=== PATIENT | female | born 1990 | race Caucasian/White ===

== ENCOUNTER 2024-02-12 14:14 | Emergency (ER) | payer OTHER, SELFPAY ==
--- NOTE | ~2024-02-12 | CT_ITS ---
EXAMINATION: CT abdomen pelvis w con DATE: 02/12/2024 19:05 INDICATION: Generalized abdominal pain. Nausea, vomiting, and diarrhea. TECHNIQUE: Computed tomography (CT) of the abdomen and pelvis was performed with 100 mL Omnipaque 350 intravenous contrast. Automated exposure control and iterative reconstruction technique were employe d. The dose-length product was 774.02 mGy-cm. COMPARISON: None. FINDINGS: The visualized portions of the lung bases demonstrate mild atelectasis. No pleural effusion . The heart size is normal. No pericardial effusion. There is mild pectus excavatum. The liver and sp joss are normal. There are changes of cholecystectomy. The pancreas, adrenal glands, and kidneys are normal. There are no dilated loops of bowel. The appendix is normal. There is an intrauterine device in expected position. There are no pathologically enlarged lymph nodes. There is no free intraperiton eal fluid. There is mild thoracic and lumbar spondylosis. There is mild chronic anterior wedging of m ultiple vertebral bodies. IMPRESSION: 1. No etiology for the patient's symptoms. Reviewed, dictated and finalized at location E.
[2024-02-12 14:46] VITALS: BP 129/61; PULSE 97; RESP 14; TEMP 36.4; O2SAT 98
--- NOTE | 2024-02-12 14:49 | PC.NURSE ---
Pt becaame pale, diaphoretic, emesis of undigested food. VSS, IV fluids from EMS infusing
[2024-02-12 16:35] VITALS: BP 110/65; PULSE 71; RESP 15; O2SAT 100
--- NOTE | 2024-02-12 17:23 | ED.NAVMDI ---
HPI - Nausea/Vomiting/Diarrhea General Chief complaint: Nausea/Vomiting/Diarrhea <CORA Quiroz Last Filed: 02/12/24 17:32> Stated complaint: n/v/d <Laura Araiza PA-C - Last Filed: 02/12/24 17:32> Time Seen by Provider: 02/12/24 17:23 <CORA Quiroz Last Filed: 02/12/24 17:32> Focused HPI: Patient is a 33 y/o female who presents to the ED via EMS with report of N/V/D. Patient reports she woke up this morning feeling unwell. She first developed diarrhea this morning and had several episodes. Denied rectal bleeding or melena. She then developed vomiting and reported multiple episodes of emesis. C/o pain to her epigastric region radiating down her abdomen. She also reports feeling lightheaded and states she passed out a few times. Denies HI, HOFFMAN. Patient was given fluids and zofran en route to the ED. Denies any known fevers. Denies familiy member with similar sx's, but states he had a similar GI bug a few weeks ago after eating foreign candy. GENERAL: Mildly ill-appearing, well-nourished, and in no acute distress. HEAD: Normocephalic, atraumatic. CHEST: Clear to auscultation. ?No respiratory distress. HEART: Tachycardic with regular rhythm.? ABD: Soft, nondistended, mild TTP in epigastric region. NEURO: ?Alert and oriented x3. Patient screened in triage and initial orders placed.? ?Additional care and disposition to be based upon?diagnostic testing and treatment. <CORA Quiroz Last Filed: 02/12/24 17:32> Source: patient <CORA Quiroz Last Filed: 02/12/24 17:32> Mode of arrival: EMS <CORA Quiroz Last Filed: 02/12/24 17:32> Limitations: no limitations <CORA Quiroz Last Filed: 02/12/24 17:32> History of Present Illness HPI Narrative: HPI per MSE. <Ant Brigido Dumont III, DO - Last Filed: 02/12/24 19:35> Related Data Allergies/Adverse reactions: Allergies Allergy/AdvReac Type Severity Reaction Status Date / Time dexamethasone [From Decadron] Allergy Fainting Verified 02/12/24 17:39 <CORA Quiroz Last Filed: 02/12/24 17:32> Course Vital Signs Vital signs: Vital Signs Temperature 97.6 F 02/12/24 14:46 Pulse Rate 97 02/12/24 14:46 Respiratory Rate 14 02/12/24 14:46 Blood Pressure 129/61 02/12/24 14:46 Pulse Oximetry 98 02/12/24 14:46 Temperature 97.6 F 02/12/24 14:46 Pulse Rate 97 02/12/24 14:46 Respiratory Rate 14 02/12/24 14:46 Blood Pressure 129/61 02/12/24 14:46 Pulse Oximetry 98 02/12/24 14:46 <CORA Quiroz Last Filed: 02/12/24 17:32> Vital Signs Temperature 97.6 F 02/12/24 14:46 Pulse Rate 97 02/12/24 14:46 Respiratory Rate 14 02/12/24 14:46 Blood Pressure 129/61 02/12/24 14:46 Pulse Oximetry 98 02/12/24 14:46 Temperature 97.6 F 02/12/24 14:46 Pulse Rate 97 02/12/24 14:46 Respiratory Rate 14 02/12/24 14:46 Blood Pressure 129/61 02/12/24 14:46 Pulse Oximetry 98 02/12/24 14:46 <Ant Dumont III, DO - Last Filed: 02/12/24 19:35> MDM - Nausea/Vomiting/Diarrhea MDM Narrative Medical decision making narrative: MSE by SHAWN in triage. <CORA Quiroz Last Filed: 02/12/24 17:32> MSE by SHAWN in triage. likely gastroenteritis but could be pancreatitis or ulcer or food poisoning. CT neg, other that lactate and wbc labs look ok and these are likely explained by vomiting and dehydration. Pt feels better after zofran and fluids. <Ant Dumont III, DO - Last Filed: 02/12/24 19:35> Lab Data Result diagrams: 02/12/24 17:43 02/12/24 17:43 <Laura Araiza PA-C - Last Filed: 02/12/24 17:32> Labs: Lab Results 02/12/24 02/12/24 02/12/24 Range/Units 17:43 17:43 17:44 WBC 19.2 H (4.5-10.0) K/mm3 RBC 4.77 (4.2-5.4) M/mm3 Hgb 14.4 (12.0-15.0) g/dL H
[2024-02-12] MEDS: FAMOTIDINE 20 MG/2 ML VIAL IV PUSH (17:39)
[2024-02-12] MEDS: ONDANSETRON INJ 4 MG/2 ML VIAL IV PUSH (17:39)
--- NOTE | 2024-02-12 17:48 | ECG_ITS ---
SEE SCANNED COPY FOR CONFIRMED REPORT MTDD
[2024-02-12 17:56] LABS: Hematocrit 44.4 % (37.0-47.0); Hemoglobin 14.4 g/dL (12.0-15.0); Mean Corpuscular HGB Conc 32.4 g/dl (32-36); Mean Corpuscular Hemoglobin 30.2 pg (26-34); Mean Corpuscular Volume 93.1 fl (80-100); Mean Platelet Volume 9.2 fl (7.4-10.4); Platelet Count Result 293 k/mm3 (150-375); Red Blood Count 4.77 M/mm3 (4.2-5.4); Red Cell Distribution Width 12.4 % (11.5-14.5); White Blood Count 19.2 K/mm3 (4.5-10.0)
[2024-02-12 17:57] LABS: Glucose Point of Care 142 mg/dl (65-105)
[2024-02-12 18:06] LABS: Alanine Aminotransferase 34 U/L (6-35); Albumin Level 4.6 g/dL (3.5-5.1); Alkaline Phosphatase 100 U/L (38-126); Anion Gap 10 mmol/L (4-12); Aspartate Amino Transferase 34 U/L (14-36); Bilirubin,Total 0.7 mg/dL (0.2-1.3); Blood Urea Nitrogen 16 mg/dL (7-17); Calcium 8.8 mg/dL (8.4-10.2); Carbon Dioxide 23 mmol/L (22-30); Chloride 104 mmol/L (98-107); Estimated CRCL calculation 618 ml/min; Estimated Glomerular Filt Rate > 60; Glucose 120 mg/dL (65-110); Lactic Acid Reflex 3.1 mmol/L (0.7-2.0); Lipase 45 U/L (23-300); Magnesium 1.7 mg/dL (1.6-2.3); Potassium 4.4 mmol/L (3.4-5.0); Sodium 137 mmol/L (137-145)
[2024-02-12 18:15] VITALS: BP 113/75; PULSE 81; RESP 16; O2SAT 100
[2024-02-12] MEDS: SODIUM CHLORIDE 0.9% IV 1,000 ML 999 ML IV CONT (18:18)
[2024-02-12 18:32] LABS: Influenza A QL RT-PCR Negative (Negative); Influenza B QL RT-PCR Negative (Negative); RSV RNA, RT-PCR Negative (Negative); SARS-CoV-2 RNA PCR Negative (Negative)
[2024-02-12 18:42] LABS: Appearance Urine Clear (Clear); Bilirubin Urine Negative (Negative); Blood Urine Negative (Negative); Color Urine Yellow (Yellow); Glucose Urine UA Negative (Negative); Ketones Urine Negative (Negative); Leukocyte Esterase Ur Negative LEU/UL (Negative); Nitrate Urine Negative (Negative); Protein Urine Negative (Negative); Specific Grav Ur 1.021 (1.001-1.035); Urobilinogen Urine 0.2 mg/dL (<2.0); pH Urine 7.5 (5.0-9.0)
[2024-02-12 18:52] LABS: Band Neutrophils Percent 5 % (0-6); Lymphocytes Absolute Manual 0.38 K/mm3 (1.1-4.5); Neutrophils Absolute Manual 18.81 K/mm3 (1.7-7.2); Neutrophils Percent Manual 93 % (46-73); Platelet Estimate Adequate (Adequate); Total Cells Counted 100
[2024-02-12 18:53] LABS: Schistocytes None Seen
[2024-02-12 19:20] LABS: Add Urine Microscopic? NO
[2024-02-12 19:46] VITALS: BP 111/71; PULSE 67; RESP 18; TEMP 37.2; O2SAT 100
[2024-02-12 20:52] LABS: Reflex Lactic Acid Yes or No Add Lactic
== END 2024-02-12 19:47 | disposition home or self-care (01) ==
PROVIDERS: Physician Assistant; Emergency Provider Emergency Medicine
DX: K52.9 Noninfective gastroenteritis and colitis, unspecified (principal); Z20.822 Contact with and (suspected) exposure to COVID-19; I45.10 Unspecified right bundle-branch block
CPT/HCPCS: 36415; 74177; 80053; 81003; 81025; 82948; 83605; 83690; 83735; 85025; 87637; 93005; 96361; 96374; 96375; 99284; J2405; J7030; Q9967

== ENCOUNTER 2024-03-11 03:13 | Emergency (ER) | payer OTHER, SELFPAY ==
--- NOTE | ~2024-03-11 | CT_ITS ---
Non-contrast CT scan of the Abdomen and Pelvis Clinical indication: Right flank pain Technique: 2.5 mm axial scans were obtained through the abdomen and pelvis without intravenous or or al contrast. Dose reduction technique was used on this scan by utilizing automated exposure control a nd iterative reconstruction technique. The dose-length product (DLP) was 1013.84 mGy-cm. COMPARISON: 02/12/2024 Findings: Images through the lung bases reveal chronic scarring or atelectasis in the right middle l obe. There is a 3 mm right UVJ stone, versus stone just within the urinary bladder. There is minimal fulln ess of the right ureter and right renal clip consistent. No left renal or left ureteral stone. No lef t hydronephrosis. The liver, spleen, pancreas, and adrenals appear normal. Cholecystectomy clips are present. There is no aortic aneurysm. There is no evidence of bowel obstruction. Normal appendix. Images through the pelvis were performed. There is no evidence of ascites or lymphadenopathy. Urinary bladder otherwise unremarkable. IUD in place. Impression: 3 mm probable right UVJ stone, versus stone just within the urinary bladder. Minimal fullness of the right ureter and right renal collecting system. Reviewed, dictated and finalized at location . Impression: 3 mm probable right UVJ stone, versus stone just within the urinary bladder. Minimal fullness of the right ureter and right renal collecting system.
[2024-03-11 03:31] VITALS: BP 112/57; PULSE 60; RESP 18; TEMP 36.1; O2SAT 100
[2024-03-11 03:38] LABS: Basophils Absolute Auto 0.1 K/mm3 (0.0-0.1); Basophils Percent Auto 0.5 % (0.2-1.2); Eosinophils Absolute Auto 0.3 K/mm3 (0-0.3); Eosinophils Percent Auto 2.3 % (0-4.4); Hematocrit 40.4 % (37.0-47.0); Hemoglobin 13.3 g/dL (12.0-15.0); Immature Granulocyte Absolute 0.04 K/mm3 (0.00-0.031); Immature Granulocyte Percent A 0.4 % (0-0.5); Lymphocytes Absolute Auto 3.78 K/mm3 (0.9-3.2); Lymphocytes Percent Auto 34.9 % (18.3-44.2); Mean Corpuscular HGB Conc 32.9 g/dl (32-36); Mean Corpuscular Hemoglobin 30.3 pg (26-34); Mean Platelet Volume 9.2 fl (7.4-10.4); Monocytes Absolute Auto 0.9 K/mm3 (0.1-0.6); Monocytes Percent Auto 8.1 % (2.6-8.5); Neutrophils Absolute Auto 5.8 K/mm3 (1.3-6.7); Neutrophils Percent Auto 53.8 % (45.5-73.1); Platelet Count Result 317 k/mm3 (150-375); Red Blood Count 4.39 M/mm3 (4.2-5.4); Red Cell Distribution Width 12.7 % (11.5-14.5); White Blood Count 10.8 K/mm3 (4.5-10.0)
[2024-03-11 03:50] LABS: Alanine Aminotransferase 35 U/L (6-35); Albumin Level 4.4 g/dL (3.5-5.1); Alkaline Phosphatase 110 U/L (38-126); Anion Gap 10 mmol/L (4-12); Aspartate Amino Transferase 31 U/L (14-36); Bilirubin,Total 0.4 mg/dL (0.2-1.3); Blood Urea Nitrogen 16 mg/dL (7-17); Calcium 9.6 mg/dL (8.4-10.2); Carbon Dioxide 24 mmol/L (22-30); Chloride 104 mmol/L (98-107); Estimated CRCL calculation 118 ml/min; Estimated Glomerular Filt Rate > 60; Glucose 146 mg/dL (65-110); Potassium 3.6 mmol/L (3.4-5.0); Sodium 138 mmol/L (137-145)
[2024-03-11 04:23] LABS: Appearance Urine Cloudy (Clear); Bacteria Urine 2+ /hpf; Bilirubin Urine Negative (Negative); Blood Urine 1+ (Negative); Color Urine Yellow (Yellow); Glucose Urine UA Negative (Negative); Ketones Urine Trace mg/dL (Negative); Leukocyte Esterase Ur 2+ LEU/UL (Negative); Nitrate Urine Negative (Negative); Non Pathogenic Casts 0-2; Protein Urine Trace mg/dL (Negative); RBC Urine 21-50 /hpf (0-2); Specific Grav Ur 1.022 (1.001-1.035); Squamous Epithelial Cell Urine Moderate /hpf (Few); WBC Urine 21-50 /hpf (0-3)
[2024-03-11 04:25] LABS: Add Urine Microscopic? YES
[2024-03-11] MEDS: SODIUM CHLORIDE 0.9% IV 2,000 ML 999 ML IV CONT (04:33)
[2024-03-11] MEDS: ONDANSETRON INJ 4 MG/2 ML VIAL IV PUSH (04:34)
[2024-03-11] MEDS: HYDROmorphone HCL INJ (*CRX) 1 MG/ML SYR IV PUSH (04:35)
[2024-03-11] MEDS: KETOROLAC 15 MG/ML VIAL (*BKC) IV PUSH (04:59)
--- NOTE | 2024-03-11 05:00 | ED.GENADULT ---
HPI - General Adult General Chief complaint: Abdominal Pain Stated complaint: flank pain Time Seen by Provider: 03/11/24 03:50 History of Present Illness HPI narrative: This is a 33-year-old female with history of kidney stones presenting with right flank pain. The pain started earlier today. It is a sharp pain radiating from her right flank into her right groin. This feels similar to kidney stones in the past. She denies fever chills nausea vomiting or diarrhea. Related Data Allergies Allergy/AdvReac Type Severity Reaction Status Date / Time dexamethasone [From Decadron] Allergy Fainting Verified 02/12/24 17:39 Exam Narrative: APPEARANCE: patient appears uncomfortable Head: atraumatic. EYES: EOMI, NOSE: Atraumatic NECK: Trachea midline RESPIRATORY: No increased rate of breathing CT AP CARDIOVASCULAR: RRR, ABDOMINAL: abdomen is soft nontender no guarding or rebound. Right CVA tenderness MUSCULOSKELETAl: No obvious deformities NEURO: Alert. Moving 4/4 extremities SKIN:: Warm, dry. Normal color PSYCHIATRIC: Normal affect Course Vital Signs Vital signs: Vital Signs Temperature 97 F L 03/11/24 03:31 Pulse Rate 60 03/11/24 03:31 Respiratory Rate 18 03/11/24 03:31 Blood Pressure 112/57 L 03/11/24 03:31 Pulse Oximetry 100 03/11/24 03:31 Oxygen Delivery Room Air 03/11/24 03:31 Temperature 97 F L 03/11/24 03:31 Pulse Rate 94 03/11/24 06:39 Respiratory Rate 20 03/11/24 06:39 Blood Pressure 111/53 L 03/11/24 06:39 Pulse Oximetry 94 03/11/24 06:39 Oxygen Delivery Room Air 03/11/24 03:31 Medical Decision Making [facility] Narrative Medical decision making narrative: -Course: 33-year-old female presenting with right-sided flank pain. CT abdomen pelvis showed a 3 mm stone at the UVJ or possibly inside the bladder. patient's pain was controlled in the emergency department. UA showed moderate squamous showed +2 leuk esterase, 21-50 red blood cells 21-50 white blood cells. White count 10.8. Vital sign stable, Afebrile. Patient given 1 dose of ceftriaxone emergency department. I discussed admission versus discharge with the patient. Patient would prefer a trial of outpatient management and understands the risk of worsening infection. Given that the patient is young and healthy with no comorbidities I believe this is reasonable. Given strict return precautions for infection such as fever, worsening flank pain, nausea vomiting or diarrhea. Patient given Urology follow-up. -DDX includes but is not limited to: Kidney stone, UTI, pyelo, muscle strain -Co-morbidities complicating care: history kidney stones -Independent interpretation of studies: white count 10.8. urine with +2 esterase, 21-50 RBCs, 21-50 white blood cells, moderate squamous+2 bacteria -Interventions: ceftriaxone 1g, 2L NS, Dilaudid 1 mg -> .5mg, 15 mg toradol -Shared decision making / Disposition: discussed risk benefits of admission versus trial of outpatient management and the patient would prefer outpatient management -RX: Cefdinir 300 mg b.i.d. times 10 days, Motrin, Tylenol, Zofran, oxycodone Vital Signs Vital Signs: Vital Signs Temperature 97 F L 03/11/24 03:31 Pulse Rate 60 03/11/24 03:31 Respiratory Rate 18 03/11/24 03:31 Blood Pressure 112/57 L 03/11/24 03:31 Pulse Oximetry 100 03/11/24 03:31 Oxygen Delivery Room Air 03/11/24 03:31 Temperature 97 F L 03/11/24 03:31 Pulse Rate 94 03/11/24 06:39 Respiratory Rate 20 03/11/24 06:39 Blood Pressure 111/53 L 03/11/24 06:39 Pulse Oximetry 94 03/11/24 06:39 Oxygen Delivery Room Air 03/11/24 03:31 Lab Data 03/11/24 03:28 03/11/24 03:28 Labs: Lab Results 03/11/24 03/11/24 Range/Units 03:28 04:07 WBC 10.8 H (4.5-10.0) K/mm3 RBC 4.39 (4.2-5.4) M/mm3 Hgb 13.3 (12.0-15.0) g/dL Hct 40.4 (37.0-47.0) % MCV 92.0 (80-100) fl MCH 30.3 (26-34) pg MCHC
[2024-03-11 05:24] VITALS: BP 128/81; PULSE 82; RESP 17; O2SAT 97
[2024-03-11 06:39] VITALS: BP 111/53; PULSE 94; RESP 20; O2SAT 94
--- NOTE | 2024-03-11 06:40 | PC.NURSE ---
Patient ambulated to the bathroom and back to her room with steady unassisted gait.
[2024-03-11] MEDS: HYDROmorphone HCL INJ (*CRX) 1 MG/ML SYR 0.5 MG IV PUSH (07:24)
[2024-03-11 07:27] VITALS: BP 114/71; PULSE 83; RESP 16; O2SAT 95
== END 2024-03-11 07:33 | disposition home or self-care (01) ==
PROVIDERS: Emergency Provider Emergency Medicine
DX: N39.0 Urinary tract infection, site not specified (principal); N20.0 Calculus of kidney
CPT/HCPCS: 36415; 74176; 80053; 81001; 81025; 85025; 87086; 87088; 96361; 96365; 96375; 96376; 99284; J0696; J1170; J1885; J2405; J7030